=== PATIENT | male | born 1955 | race Caucasian/White ===

== ENCOUNTER 2016-12-06 19:55 | Emergency (ER) | payer OTHER ==
[2016-12-06 20:10] VITALS: BP 135/65
[2016-12-06] MEDS ORDERED: Albuterol 2.5 MG/3 ML NEB.SOL* (0.083%) INH ONE (20:43)
[2016-12-06] MEDS ORDERED: Ipratropium 0.5MG/2.5ML NEB* 0.5 MG/2.5 ML NEB.SOLN INH ONE (20:43)
--- NOTE | 2016-12-06 20:51 | RAD ---
INDICATION: Cough, dyspnea, bilateral basilar Rales. COMPARISON: August 06, 2005 TECHNIQUE: Dual energy PA and routine lateral views of the chest were obtained. REPORT: Mild prominence of the interstitial markings. Subtle alveolar consolidation at the RIGHT lung base . Negative for pleural effusion or pneumothorax. The heart, pulmonary vasculature, and mediastinal contours are unremarkable. IMPRESSION: Stigmata of potential chronic obstructive pulmonary disease. Subtle alveolar consolidation at the RIGHT lung base concerning for pneumonia.
[2016-12-06] MEDS ORDERED: cefTRIAXone VIAL(*) 1,000 MG VIAL IM ONE (21:34)
[2016-12-06] MEDS ORDERED: Albuterol HFA INHALER* 8 gm MDI INH ONE (21:35)
[2016-12-06] MEDS ORDERED: guaiFENesin/CODIEN 100MG-10MG* 5 ML UDC PO ONE (21:35)
[2016-12-06] MEDS ORDERED: Lidocaine 1% MPF* 2 ML VIAL ONE (21:46)
--- NOTE | 2016-12-06 23:22 | UC ---
Vicente Fisher Erika, scribed for Soledad Maldonado DO on 12/06/16 at 2032 . Respiratory Complaint HPI - HPI Summary HPI Summary: A 61-year-old male presents to [facility] with his with a CC of cough for 10 days. Patient reports that his developed a cough about 3 weeks ago. 10 days ago, pt also began coughing with a purvis sputum. He denies blood in sputum. The coughing had somewhat improved today, but this afternoon, patient stood up from the couch and noticed chest tightness. He denies chest pain with breathing , but states his breathing feels restricted, worse when inhaling than exhaling. Pt also states he feels SOB. Patient does report intermittent chills and headache. He denies CP, dizziness, fever, diaphoresis, sore throat, ear ache, sinus pressure, nausea, vomiting, abdominal pain, urinary symptoms, rashes, and LE edema. Patient denies any PMHx, and does not take daily medication. FHx diabetes. Patient lives with his , and does not smoke. - History of Current Complaint Chief Complaint: UCRespiratory Stated Complaint: CONGESTION Time Seen by Provider: 12/06/16 20:17 Hx Obtained From: Patient, Family/Head Of Design - Onset/Duration: Gradual Onset, Lasting Weeks - 10 days, Still Present Timing: Constant Severity Initially: Mild Severity Currently: Moderate Character: Sputum Description: - purvis Alleviating Factors: Nothing Associated Signs And Symptoms: Positive: Dyspnea, Chills, URI. Negative: Fever , Hemoptysis, Calf Pain, Calf Swelling, Sinus Discomfort - Allergies/Home Medications Allergies/Adverse Reactions: Allergies Allergy/AdvReac Type Severity Reaction Status Date / Time No Known Allergies Allergy Verified 12/06/16 20:10 PMH/Surg Hx/FS Hx/Imm Hx Previously Healthy: Yes Endocrine History Of: Denies: Diabetes Cardiovascular History Of: Denies: Hypertension - Surgical History Surgical History: None - Family History Known Family History: Positive: Diabetes Negative: Cardiac Disease, Hypertension - Social History Occupation: Employed Full-time Lives: With Family Alcohol Use: Occasionally Substance Use Type: None Smoking Status (MU): Never Smoked Tobacco Review of Systems Constitutional: Chills Skin: Negative Eyes: Negative ENT: Negative Respiratory: Shortness Of Breath, Cough Cardiovascular: Other - chest tightness Gastrointestinal: Negative Genitourinary: Negative Motor: Negative Neurovascular: Negative Musculoskeletal: Negative Neurological: Headache Psychological: Negative All Other Systems Reviewed And Are Negative: Yes Physical Exam Triage Information Reviewed: Yes Appearance: Well-Appearing, No Pain Distress, Well-Nourished Vital Signs: Initial Vital Signs Temp 96.6 F 12/06/16 20:04 Pulse 89 12/06/16 20:04 Resp 20 12/06/16 20:04 BP 135/65 12/06/16 20:04 Pulse Ox 98 12/06/16 20:04 Vital Signs Reviewed: Yes Eyes: Positive: Conjunctiva Clear. Negative: Discharge ENT: Positive: Hearing grossly normal. Negative: Muffled/hoarse voice Neck: Positive: Supple, Nontender Respiratory: Positive: No respiratory distress, No accessory muscle use, Rhonchi - bilateral bases, Wheezing, Expiration - prolonged expiration Cardiovascular: Positive: RRR, No Murmur Musculoskeletal Exam: Normal Neurological: Positive: Alert, Muscle Tone Normal Psychological Exam: Normal Psychological: Positive: Age Appropriate Behavior Skin Exam: Other - warm, dry, normal color UC Diagnostic Evaluation - Laboratory O2 Sat by Pulse Oximetry: 98 Diagnostic Studies Comment: CXR order mistakely stated it was ordered due to rales - should state rhonchi. - Radiology Radiology Interpretation Completed By: Radiologist - CXR - IMPRESSION: Stigmata of potential chronic obstructive pulmonary disease. Subtle alveolar Re-Evaluation - Re-Evaluation First Eval Re-Evaluation Time: 21:27 Change: Improved Comment: After nebulizer treatment, patient reports significant improvement in dyspnea. There are signficantly improved breath sounds. Respiratory Course/Dx - Differential Dx/Diagnosis Differential Diagnosis/HQI/PQRI: Bronchitis, Lower Resp Infection, Sinusitis, Other - uri Provider Diagnoses: Pneumonia Discharge - Discharge Plan Condition: Stable Disposition: HOME Prescriptions: Cefdinir [Cefdinir 300 MG CAP] 300 mg PO BID #19 cap guaiFENesin ER TAB [Mucinex*] 600 mg PO BID PRN #1 box PRN Reason: Cough guaiFENesin/CODIEN 100MG-10MG* [Robitussin AC 100Mg-10Mg*] 5 - 10 ml PO BEDTIME PRN #100 udc MDD 10ml PRN Reason: Cough predniSONE TAB* [Deltasone TAB*] 40 mg PO DAILY #8 tab Patient Education Materials: Community Acquired Pneumonia (ED), Bronchospasm ( ED) Referrals: Kirk Rodriguez MD [Primary Care Provider] - 2 Days ( Follow up in 2 days for re-evaluation. This follow up visit is important, we want to know that you are improving. If you can not get in with your PCP, return here for re-evaluation. ) Additional Instructions: CEPHALOSPORINS: An antibiotic of the cephalosporin class has been prescribed. This type of antibiotic covers a wide variety of infections, including those of the skin, lungs, middle ear, and urinary tract. This antibiotic is somewhat similar to the penicillin family. In rare cases , a person who is allergic to penicillin will also be allergic to this medication. If you have had a severe allergic reaction to penicillin, and have not taken this antibiotic since that time, notify your doctor. Antibiotics which cover many germs ("broad spectrum" antibiotics) are more likely to cause diarrhea or "yeast" infections. Women prone to vaginal yeast problems may suffer an attack after taking this antibiotic. In infants, oral thrush (white spots "stuck" on the cheek) or yeast diaper rash may result. See your doctor if these problems occur. Call the doctor at once if you develop hives, itching, shortness of breath , or lightheadedness. ANY TIME YOU TAKE AN ANTIBIOTIC, IT IS IMPORTANT TO REPLENISH THE BODY'S BALANCE OF "GOOD" BACTERIA BY EATING HIGH QUALITY CULTURED FOOD SUCH YOGURT, SAURKRAUT OR MAR CHI AND/OR TAKING A PROBIOTIC SUPPLEMENT. INHALED BRONCHODILATORS: You have received a prescription for an inhaled bronchodilator -- a medication which stimulates the airways in the lung to dilate. This improves the flow of air in asthma, bronchitis, and emphysema. These medicines have some similarity to adrenaline, and can cause similar side effects: shakiness, racing heart, and a sense of nervousness. These side effects decrease with time. Contact your doctor if these side effects are severe. Do not over-use the medicine. Too-frequent use of the inhaler may make it ineffective. Call your doctor if the inhaler is not controlling your symptoms at the prescribed doses. COUGH-SUPPRESSANT & EXPECTORANT MEDICATION: You are to use a cough medication as needed for relief of symptoms. This medicine is a combination of an expectorant (to make the mucous thinner and more easily "coughed up") and a cough suppressant (to reduce the frequency of coughing). The cough-suppressant medicine is related to narcotics. You may experience mild nausea and sleepiness. Some patients who are very sensitive to narcotics may have stomach pain from this medicine. Taking the medicine with food reduces these side effects. Do not drive or work with machinery until you know how this medicine affects you. The expectorant should have no side effects. Iodine-containing expectorants (such as organidin) should not be taken by persons with active thyroid disease unless approved by your doctor. Call the doctor if you develop shortness of breath, hives, rash, itching, lightheadedness, or severe nausea and vomiting. EXPECTORANT MEDICATION: An expectorant medicine has been prescribed. This type of drug makes mucous thinner, helping the sinuses, nose, and bronchial tubes to remain free of pus and mucous. Expectorants make a cough less severe and more comfortable, and help infected sinuses drain. In general, antihistamines defeat the purpose of the expectorant by making mucous thicker. They should be avoided unless specifically recommended by your physician. CORTICOSTEROID MEDICATION: You have been given a medicine of the cortisone class. This medication is used to control inflammation or allergy. It is usually only given for a short period of time, until the acute process subsides. There are usually no side effects from short-term use of cortisone-like medications. Some persons feel an increased sense of well-being and are not sleepy at bedtime. Long-term use of cortisone medications is best avoided, unless required for a severe condition. If your condition does not remit, or relapses after the course of corticosteroid medication, you should consult your physician. Contact the physician if you develop lightheadedness, black or tarry stools , swelling of the legs, or significant rapid change in weight. FOLLOW-UP CARE: You should establish with a private physician for follow-up care. If you are unable to get a timely appointment, or if you are worsening, call us or return for re-evaluation. An additional resource available to assist in finding the appropriate physician for your health care needs is the Physician Referral Center. You may contact them by calling [phone]. and Follow up in 2 days for re-evaluation. This follow up visit is important, we want to know that you are improving. If you can not get in with your PCP, return here for re-evaluation. The documentation as recorded by the chauibVicente monet Erika accurately reflects the service I personally performed and the decisions made by me, Soledad Maldonado DO.
[2016-12-07 11:09] LABS: Hematocrit 42 % (42-52); Hemoglobin 14.3 g/dl (14.0-18.0); Mean Corpuscular HGB Conc 34 g/dl (31-36); Mean Corpuscular Hemoglobin 29 pg (27-31); Mean Corpuscular Volume 85 fL (80-94); Mean Platelet Volume 8 um3 (7.4-10.4); Red Cell Distribution Width 13 % (10.5-15)
[2016-12-07 12:27] LABS: Erythrocyte Sed Rate 91 mm/Hr (0-20)
== END 2016-12-06 22:13 | disposition home or self-care (01) ==
LOC: UCEAST 19:55
DX: J18.9 Pneumonia, unspecified organism (principal)
CPT/HCPCS: 36415; 71020; 85025; 85652; 86141; 96372; 99213; A9270-GY; G0463; J0696; J7644

== ENCOUNTER 2016-12-08 13:17 | Emergency (ER) | payer OTHER ==
[2016-12-08 13:40] VITALS: BP 114/71
--- NOTE | 2016-12-08 13:56 | UC ---
UC General HPI - HPI Summary HPI Summary: Patient was treated for pnuemonia 2 days ago. he feels he is improving, cough is present, no fever any more still has periods of SOB - History of Current Complaint Chief Complaint: UCRespiratory Stated Complaint: URI Time Seen by Provider: 12/08/16 13:38 Hx Obtained From: Patient Onset/Duration: Gradual Onset Timing: Constant Onset Severity: Mild Current Severity: Mild Associated Signs & Symptoms: Positive: Cough, SOB - Allergy/Home Medications Allergies/Adverse Reactions: Allergies Allergy/AdvReac Type Severity Reaction Status Date / Time No Known Allergies Allergy Verified 12/06/16 20:10 PMH/Surg Hx/FS Hx/Imm Hx Previously Healthy: Yes Endocrine History Of: Denies: Diabetes, Thyroid Disease Cardiovascular History Of: Denies: Cardiac Disorders, Hypertension Respiratory History Of: Denies: COPD, Asthma GI/ History Of: Denies: Ulcer - Surgical History Surgical History: None - Family History Known Family History: Positive: Diabetes Negative: Cardiac Disease, Hypertension - Social History Alcohol Use: Occasionally Substance Use Type: None Smoking Status (MU): Never Smoked Tobacco Review of Systems Constitutional: Negative Skin: Negative Eyes: Negative ENT: Negative Respiratory: Shortness Of Breath, Cough Cardiovascular: Negative Gastrointestinal: Negative Genitourinary: Negative Motor: Negative Neurovascular: Negative Musculoskeletal: Negative Neurological: Negative Psychological: Negative All Other Systems Reviewed And Are Negative: Yes Physical Exam Triage Information Reviewed: Yes Appearance: Well-Appearing, No Pain Distress, Well-Nourished Vital Signs: Initial Vital Signs Temp 98.4 F 12/08/16 13:38 Pulse 83 12/08/16 13:38 Resp 20 12/08/16 13:38 BP 114/71 12/08/16 13:38 Pulse Ox 94 12/08/16 13:38 Vital Signs Reviewed: Yes Eye Exam: Normal Eyes: Positive: Conjunctiva Clear ENT Exam: Normal ENT: Positive: Normal ENT inspection, Hearing grossly normal, Pharynx normal, TMs normal Dental Exam: Normal Neck exam: Normal Neck: Positive: Supple, Nontender, No Lymphadenopathy Respiratory: Positive: Chest non-tender, No respiratory distress, No accessory muscle use, Decreased breath sounds - RLL Cardiovascular Exam: Normal Cardiovascular: Positive: RRR, No Murmur, Pulses Normal Abdominal Exam: Normal Abdomen Description: Positive: Nontender, No Organomegaly, Soft Bowel Sounds: Positive: Present Musculoskeletal Exam: Normal Musculoskeletal: Positive: Strength Intact, ROM Intact, No Edema Neurological Exam: Normal Neurological: Positive: Alert, Muscle Tone Normal Psychological Exam: Normal Skin Exam: Normal Course/Dx - Course Course Of Treatment: Patient is here for a recheck, he was seen 2 days ago for SOB and cough, dx pneumonia. Patient is tolerating medication well. Responding positively to the treatment. RLL decreased breath sounds, otherwise clear lung sounds. patient has a follow up scheduled with his PCP on saturday. - Differential Dx - Multi-Symptom Provider Diagnoses: COugh, SOB Discharge - Discharge Plan Condition: Stable Disposition: HOME Referrals: Kirk Rodrigeuz MD [Primary Care Provider] - Additional Instructions: 1. CONtinue current course of treatment. 2. Follow up with your provider on
== END 2016-12-08 14:00 | disposition home or self-care (01) ==
LOC: UCEAST 13:17
DX: R05 Cough (principal); R06.02 Shortness of breath; Z87.01 Personal history of pneumonia (recurrent)
CPT/HCPCS: 99211; G0463

== ENCOUNTER 2024-09-07 13:02 | Observation (INO) ==
[2024-09-07 14:01] LABS: ABS Lymphocytes 0.9 10^3/uL (1.0-4.8); ABS Monocytes 0.3 10^3/uL (0.0-1.1); ABS Neutrophils 3.1 10^3/uL (1.5-7.6); ABS Nucleated RBC 0.01 10^3/ul; Eosinophil % 0.7 %; Hematocrit 45.7 % (38-53); Hemoglobin 15.8 g/dL (13.2-16.3); Lymphocyte % 20.2 %; Mean Corpuscular Hemoglobin 30.5 pg (27-33); Mean Corpuscular Hgb Conc 34.6 g/dL (31-36); Mean Corpuscular Volume 88.2 fL (80-97); Mean Platelet Volume 8.1 fL (7.5-11.2); Nucleated Red Blood Cells % 0.2 %/100WBC (0.0-0.8); Platelet Count 160 10^3/uL (150-450); Red Blood Count 5.19 10^6/uL (4.06-5.63); Red Cell Distribution Width 12.9 % (12-17); White Blood Count 4.4 10^3/uL (3.6-10.2)
[2024-09-07 14:11] LABS: INR 1.14 (0.85-1.14)
[2024-09-07 14:28] LABS: Albumin 4.9 g/dL (3.5-5.7); Albumin/Globulin Ratio 2.5 (1-3); Calcium 9.4 mg/dL (8.6-10.3); Creatinine, Serum 0.94 mg/dL (0.67-1.17); Total Bilirubin 0.7 mg/dL (0.2-1.0); Total Protein 6.9 g/dL (6.4-8.9); eGFR CKD-EPI 87.2 (>60)
[2024-09-07 14:44] LABS: Magnesium 1.9 mg/dL (1.9-2.7)
[2024-09-07 14:59] LABS: TSH Ultra Thyroid Stim Horm 8.47 mcIU/mL (0.34-5.60)
[2024-09-07 15:31] LABS: High Sensitivity Troponin 1 Hr 6 pg/mL (<20)
[2024-09-07 17:58] LABS: High Sensitivity Troponin 3 Hr 9 pg/mL (<20)
[2024-09-07] MEDS ORDERED: Sulfur Hexaflouride MICROSPHR 25 MG VIAL IV PRN (19:44)
[2024-09-07 21:27] LABS: Free T3 2.93 pg/mL (2.5-3.9)
[2024-09-07 21:29] LABS: Free T4 0.73 ng/dL (0.61-1.12)
[2024-09-07 22:36] VITALS: BP 144/92
== END 2024-09-07 22:30 | disposition home or self-care (01) ==
LOC: ED 13:02 → EDHOLD 13:02 → MEDTELE 13:02 → EDHOLD 22:02 → ED 22:28 → EDHOLD 22:28
PROVIDERS: ADMIT Internal Medicine; ATTEND Internal Medicine